=== PATIENT | female | born 1985 ===

== ENCOUNTER 2022-03-15 15:00 | Outpatient (CLI) | payer OTHER | END 2022-03-15 15:35 | disposition home or self-care (01) | LOC: ASH CLINIC 15:00 | PROVIDERS: ATTEND General Practice | DX: U07.1 COVID-19 (principal) ==

== ENCOUNTER → 2022-03-15 | Emergency (ER) | payer OTHER | END | disposition home or self-care (01) | LOC: ER 11:37 | DX: U07.1 COVID-19 (principal); Z91.018 Allergy to other foods ==

== ENCOUNTER 2023-04-07 01:22 | Inpatient (IN) | payer OTHER ==
[~2023-04-07] VITALS: Ht 157.5 cm; Wt 82.6 kg
[2023-04-07] MEDS ORDERED: NASAL MIST126 ML (01:55)
[2023-04-07] MEDS ORDERED: PRENATAL TABLE1 EAC4 PO (01:55)
== END 2023-04-09 11:40 | disposition home or self-care (01) | DRG 807 ==
LOC: LDR 01:22 → OB/GYN 01:22 → SURG-SUITE 04-10 14:25
PROVIDERS: ADMIT Obstetrics & Gynecology Maternal & Fetal Medicine; ATTEND Obstetrics & Gynecology Maternal & Fetal Medicine
PROC: 10E0XZZ Delivery of Products of Conception, External Approach (ICD-10-PCS; principal; 2023-04-07)
PROC: 0W8NXZZ Division of Female Perineum, External Approach (ICD-10-PCS; 2023-04-07)
PROC: 4A1HXCZ Monitoring of Products of Conception, Cardiac Rate, External Approach (ICD-10-PCS; 2023-04-07)
DX: O80 Encounter for full-term uncomplicated delivery (principal); Z37.0 Single live birth; Z3A.39 39 weeks gestation of pregnancy; Z20.822 Contact with and (suspected) exposure to COVID-19